=== PATIENT | male | born 1985 | race Caucasian/White ===

== ENCOUNTER 2025-09-03 13:22 | Emergency (ER) | payer OTHER ==
[~2025-09-03] VITALS: Ht 182.9 cm; Wt 90.9 kg
[2025-09-03] MEDS: MORPHINE 4 MG/ML 1 ML VIAL IV PRN (14:06)
[2025-09-03] MEDS: ONDANSETRON 4MG 2ML VIAL IV ONE (14:06)
[2025-09-03 14:09] LABS: BASO # 0.0 10^3/uL (0.0-0.2); BASO % 0.2 % (0.0-1.0); EOS # 0.0 10^3/uL (0.0-0.5); EOS % 0.2 % (0.0-3.0); LYMPH # 1.9 10^3/uL (1.5-5.0); LYMPH % 14.0 % (24.0-44.0); MONO # 0.7 10^3/uL (0.0-0.8); MONO % 5.2 % (2.0-8.0); NEUTROPHILS # 10.8 10^3/uL (1.5-8.5); NEUTROPHILS % 79.7 % (36.0-66.0); PLATELET COUNT, AUTOMATED 270 10^3/uL (150-450)
[2025-09-03] MEDS ORDERED: ISOVUE-370 76% 100 ML VIAL As Ordered ONE (14:23)
[2025-09-03 14:34] LABS: ALT/SGPT 35 U/L (7.0-40); AST/SGOT 53 U/L (<34); CALCIUM LEVEL 9.1 MG/DL (8.5-10.1); CARBON DIOXIDE LEVEL 26 MMOL/L (20-31); CHLORIDE LEVEL 104 MMOL/L (98-107); CREATININE FOR GFR 1.02 MG/DL (0.70-1.30); GLOMERULAR FILTRATION RATE > 90.0 (>60); POTASSIUM SERUM 5.1 MMOL/L (3.5-5.1); SODIUM LEVEL 139 MMOL/L (136-145)
[2025-09-03] MEDS ORDERED: PERC5TAB12 PO (16:25)
[2025-09-03 16:30] VITALS: BP 133/74; TEMP 98.4; O2SAT 98
[2025-09-03 16:35] VITALS: O2SAT 99
== END 2025-09-03 16:37 | disposition home or self-care (01) ==
LOC: M ED 13:22
DX: S20.211A Contusion of right front wall of thorax, initial encounter (principal); V86.95XA Unspecified occupant of 3- or 4- wheeled all-terrain vehicle (ATV) injured in nontraffic accident, initial encounter; Y92.9 Unspecified place or not applicable; Y93.89 Activity, other specified; Y99.9 Unspecified external cause status
CPT/HCPCS: 70450; 71045; 71260; 72125; 74177; 80047; 80053; 82150; 83690; 85025; 96374; 96375; 99284; J2405; Q9967